=== PATIENT | male | born 1965 | race Caucasian/White ===

== ENCOUNTER 2016-08-04 23:09 | Emergency (ER) | payer OTHER ==
[~2016-08-04 23:09] MED LIST: CELEBREX200 MG PO; CITRATE OF MAG296 ML PO; FLEXERIL10 MG PO; GLUCOTROL10 MG PO; HYDROCODON-ACE1 EAC7 PO; LANTUS 10100 UNITS/ SC; LANTUS 3 M100 UNITS1 SC; NAPROSYN500 MG PO; NEURONTIN300 MG PO; NORCO 5/3251 TABLET PO; PERCOCET 5/31 TABLET PO; PREDNISONE10 MG PO; PREDNISONE50 MG PO; SOMA350 MG PO; TYLENOL ARTHRI650 M2 PO; VALIUM5 MG PO; ZOFRAN4 MG PO
== END 2016-08-04 23:37 | disposition left against medical advice (07) ==
LOC: EME 23:09
DX: M54.2 Cervicalgia (principal); Z53.21 Procedure and treatment not carried out due to patient leaving prior to being seen by health care provider